=== PATIENT | male | born 1955 | race Caucasian/White ===

== ENCOUNTER → 2024-01-31 13:50 | Outpatient (REF) | payer MEDICARE, OTHER, SELFPAY | LOC: HWRAD 13:50 | PROVIDERS: ATTENDING PHYSICIAN Emergency Medicine | DX: Z87.448 Personal history of other diseases of urinary system (principal) | CPT/HCPCS: 76775 ==

== ENCOUNTER 2024-06-25 20:50 | Emergency (ER) | payer MEDICARE, OTHER, SELFPAY ==
[2024-06-25 20:53] VITALS: BP 153/87
[2024-06-25 21:35] VITALS: BMI 35.5
[2024-06-25 21:38] VITALS: BP 105/93
[2024-06-25 22:00] VITALS: BP 130/80
[2024-06-25 23:00] VITALS: BP 137/71
[2024-06-26 00:11] VITALS: BP 137/85
--- NOTE | 2024-06-26 00:38 | ED.GENMED ---
History of Present Illness
General
Chief Complaint: Facial Problem
Source: patient
Time Seen by Provider: 06/26/24 00:18
History of Present Illness
History of Present Illness:
68-year-old male presents to the emergency room complaining of right facial pain. Patient has been experiencing episodes of right facial pain for the past 3 weeks. The pain seems to begin in the upper maxillary region and radiates up to his
temporal area. Episodes of pain last about a minute and a half. When the pain decreases it decreases to about a 1 out of 10. It does not go away completely. Patient has not identified a specific trigger. He was treated by his dentist with
amoxicillin initially without improvement. He also received some oxycodone which has not helped. His primary care provider prescribed gabapentin which is also not. Patient has not had much sleep due to the pain. Patient is able to chew without
difficulty.
Past History
Past History
ED Past Medical History: None; Negative IDDM or NIDDM
ED Past Surgical History: Orthopedic; Negative Cardiac
Social History
Tobacco: Non-smoker
Alcohol: None
Drug: None
Personal:
Living: with family
Employment: Employed
Family History
Family History: Hypertension
Phy Exam
Physical Exam
Physical Exam:
General: Awake, Alert, Oriented X3. No acute distress.
Vitals: unremarkable
Head: Atraumatic
Eyes: Pupils equal, EOMI
Mouth: Normal dentition.
Throat: Airway intact, no exudates
Neck: Trachea midline
Lungs: Clear and equal b/l
Heart: Regular rate, no murmurs
Abd: Soft, Nontender, No pulsatile mass
Neuro: Nonfocal
Skin: Warm, dry, no rash
Extremities: pulses equal b/l, no edema
Course
Orders/Labs/Results
Orders:
Orders
06/26/24 00:28
CT Facial Bones W/ Iv Contrast Urgent
Comment:
Reason For Exam: severe right facial pain
CT Head W/o Iv Contrast Urgent
Comment:
Reason For Exam: head/facial pain
06/26/24 01:04
Basic Metabolic Panel Urgent
CRP [C-Reactive Protein] Urgent
Complete Blood Count/With Diff Urgent
Prothrombin Time Urgent
Sed Rate [Erythrocyte Sed Rate] Urgent
06/26/24 02:43
Carbamazepine [Tegretol] 200 mg PO NOW STA
Abnormal Lab Results
06/26/24
01:04
RBC 4.22 L 10^6/uL
(4.70-6.10)
Hgb 12.7 L g/dL
(13.0-18.0)
Hct 35.5 L %
(39.0-52.0)
Absolute Monos (auto) 0.8 H 10^3/uL
(0.1-0.6)
Lymphocytes % 18.5 L %
(20.5-51.1)
ESR 39 H mm/hour
(0-20)
PT 35.4 H Sec
(11.4-14.6)
Carbon Dioxide 21 L mmol/L
(22-30)
C-Reactive Protein 18.60 H mg/L
(0.0-10.00)
06/26/24 01:04
06/26/24 01:04
Vital Signs
Initial and Last Documented VS:
Initial Vital Signs
Temp Pulse Resp BP Pulse Ox
98.1 F 76 18 153/87 97
06/25/24 20:53 06/25/24 20:53 06/25/24 20:53 06/25/24 20:53 06/25/24 20:53
Last Documented Vital Signs
Temp Pulse Resp BP Pulse Ox
98.1 F 66 13 142/81 97
06/25/24 20:53 06/26/24 03:00 06/26/24 03:00 06/26/24 03:00 06/26/24 03:00
MDM/Problems Addressed
Differential Diagnosis Includes:
trigeminal neuralgia, abscess, cellulitis, mass
MDM/Problems Addressed:
Vision report was essentially NAD. I have reviewed the official report and there is note of a 6mm structure (mass vs lymph node) for which f/u is recommended. also noted is b/l sinusitis but presentation not really c/w sinusitis. I called pt to
discuss new findings on final report. Pt has appt with ENT on 07/31. Pt started on carbamezapine for trigeminal neuralgia or similar cranial nerve pain syndrome
*Radiology
Radiology exam reviewed: other
*Critical Care Note
Total Time (30-74mins, 75-104mins- exclusive of procedures): Not Applicable
ED Attending Note
-
Portions of this chart may have been created with voice recognition software.� Occasional wrong word or��sound alike� substitutions may have occurred due to the inherent limitations of voice recognition software.
Discharge Plan
Departure
Patient Disposition: Home (Routine Discharge)
Date of Disposition: 06/26/24
Time of Disposition: 03:00
Patient with high blood pressure during this ER visit?: No
Condition: Good
Discharge Problem:
Acute facial pain, Trigeminal neuralgia of right side of face
Instructions: Trigeminal neuralgia, BLOOD PRESSURE
Prescriptions:
New
carbamazepine 200 mg tablet
200 mg PO BID Qty: 30 0RF
No Action
omeprazole magnesium [Prilosec OTC] 20 MG tablet,delayed release (DR/EC)
20 mg PO PRN PRN (Reason: indigestion)
warfarin [Jantoven] 4 MG tablet
8 mg PO .EVERYOTHERDAY
warfarin [Jantoven] 4 MG tablet
4 mg PO .EVERYOTHERDAY
multivitamin [Daily Multiple] 1 EACH tablet
1 ea PO DAILY
Referrals:
Elizabeth Begum MD [Family Provider] -
Brennan Murrieta MD [Active] -
Interventions
Interventions:
*Risk Screen - Suicide Last Done: 06/25/24 21:35
*General Assessment Last Done: 06/25/24 21:35
*Neglect/Abuse Screening Last Done: 06/25/24 21:35
ED- Fall Risk Assessment Last Done: 06/26/24 03:20
*ED COVID-19 Vaccine History Last Done: 06/25/24 21:35
*Nursing Disposition Last Done: 06/26/24 03:20
ED- Neurological Assessment Last Done: 06/25/24 21:35
ED-Skin Assessment Last Done: 06/25/24 21:35
Discharge Date and Time
Discharge Date/Time: 06/26/24 03:22
Print Language: ITALIAN
[2024-06-26 01:02] VITALS: BP 142/76
[2024-06-26 01:13] LABS: % Basophils 0.4 % (0-2); % Eosinophils 1.4 % (0-6); % Immature Granulocytes 0.4 % (0-0.5); % Lymphocytes 18.5 % (20.5-51.1); % Monocytes 9.3 % (1.7-9.3); Absolute Eosinophils 0.1 10^3/uL (0-0.7); Absolute Lymphocytes 1.5 10^3/uL (1.2-3.4); Absolute Monocytes 0.8 10^3/uL (0.1-0.6); Absolute Neutrophils 5.8 10^3/uL (1.4-6.5); Hematocrit 35.5 % (39.0-52.0); Hemoglobin 12.7 g/dL (13.0-18.0); Mean Corp Hgb Conc. 35.8 g/dL (33.0-37.0); Mean Corpuscular Hgb 30.1 pg (27.0-31.0); Mean Corpuscular Volume 84.1 fL (80.0-94.0); Mean Platelet Volume 8.9 fL (7.4-10.4); Nucleated Red Blood Cells % 0 % (-); Platelet Count 244 10^3/uL (130-400); Red Blood Cell Count 4.22 10^6/uL (4.70-6.10); Red Cell Dist. Width 13.1 % (11.5-14.5); White Blood Cell Count 8.3 10^3/uL (4.8-10.8)
[2024-06-26 01:32] LABS: INR 3.53; PT 35.4 Sec (11.4-14.6)
[2024-06-26 01:42] LABS: Blood Urea Nitrogen 19 mg/dl (9-20); Calcium 9.3 mg/dl (8.4-10.2); Carbon Dioxide 21 mmol/L (22-30); Chloride 106 mmol/L (98-107); Estimated Creatinine Clearance 89 ml/min; Glucose 93 mg/dl (70-99); Potassium 4.3 mmol/L (3.5-5.1); Sodium 141 mmol/L (135-145); eGFR > 60.00
[2024-06-26 02:01] LABS: Erythrocyte Sed Rate 39 mm/hour (0-20)
[2024-06-26 02:19] VITALS: BP 128/75
[2024-06-26] MEDS: TEGRETOL 200 MG PO (02:46)
[2024-06-26 03:00] VITALS: BP 142/81
== END 2024-06-26 03:22 | disposition home or self-care (01) ==
LOC: EMR 20:50
PROVIDERS: EMERGENCY PHYSICIAN Emergency Medicine; FAMILY PHYSICIAN Emergency Medicine
DX: G50.0 Trigeminal neuralgia (principal)
CPT/HCPCS: 99284; 70450; 70487; 80048; 85025; 85610; 85652; 86140; Q9967

== ENCOUNTER → 2025-07-04 14:47 | Outpatient (REF) | payer MEDICARE, OTHER, SELFPAY | LOC: DHSLP 14:47 | PROVIDERS: ATTENDING PHYSICIAN Internal Medicine; FAMILY PHYSICIAN Emergency Medicine | DX: G47.30 Sleep apnea, unspecified (principal); G47.00 Insomnia, unspecified; R06.83 Snoring | CPT/HCPCS: 95800 ==